=== PATIENT | female | born 1935 | race Caucasian/White ===

== ENCOUNTER 2023-07-02 20:27 | Emergency (ER) | payer OTHER, MEDICAID ==
[~2023-07-02] VITALS: Ht 137.2 cm; Wt 57.6 kg
[~2023-07-02 20:27] MED LIST: ASPI-862 PO; CALC-823 PO; CARV25TA55 PO; CINA60TA PO; FURO-149 PO; LEVO750T64 PO; LEVO75TA7 PO; LIP20 PO; LOSA-413 PO; MESA500C PO; METR500T PO; MOME13HF11 INH; MULT1CAP34 PO; POTA-197 PO; PRED20TA PO; RESEYE OP; SACC250C3 PO; TIMO5DRO18 OP; XALEYE OP
[2023-07-02 20:43] VITALS: BP_SYST 135; PULSE 71; RESP 19; TEMP 97; O2SAT 98
[2023-07-02 23:20] VITALS: BP_SYST 129; PULSE 63; RESP 18; TEMP 98.3; O2SAT 97
== END 2023-07-02 23:20 | disposition home or self-care (01) ==
LOC: SED 20:27
DX: I95.9 Hypotension, unspecified (principal); J44.9 Chronic obstructive pulmonary disease, unspecified; I10 Essential (primary) hypertension; Z79.899 Other long term (current) drug therapy
CPT/HCPCS: 99281